=== PATIENT | female | born 1980 | race African-American/Black ===

== ENCOUNTER 2020-06-03 14:32 | Outpatient (REF) | payer SELFPAY ==
[2020-06-06 13:50] LABS: SARS-CoV-2 Specimen Source Nasal
[2020-06-06 13:51] LABS: Method Summary See Comments; SARS-CoV-2 RNA Undetected (Undetected)
== END 2020-06-03 14:52 ==
LOC: NCHCN 14:32
PROVIDERS: Visit Provider Nurse Practitioner Family
DX: Z20.828 Contact with and (suspected) exposure to other viral communicable diseases (principal)
CPT/HCPCS: U0003

== ENCOUNTER 2021-05-13 18:07 | Emergency (ER) | payer OTHER, SELFPAY ==
[2021-05-13 18:19] VITALS: BP 152/88; PULSE 89; RESP 17; TEMP 36.6; O2SAT 97
--- NOTE | 2021-05-13 18:30 | DI.CT_ITS ---
Exam(s) CT CERVICAL SPINE WO EXAM: CT CERVICAL SPINE WO CLINICAL HISTORY: L sided neck pain, L arm pain/hand numbness. TECHNIQUE: Imaging Protocol: Axial computed tomography images with coronal and sagittal reformatted images were created and reviewed CONTRAST MATERIAL: None. COMPARISON: No exams were available for comparison FINDINGS: The neck is held in flexion. There is motion artifact from C6 through T1. Bones: No fractures or dislocations are seen. The alignment of the cervical spine is normal including the craniovertebral junction and cervicothora cic junction. C2-3: Normal. C3-4: Normal. C4-5: Normal. C5-6: Endplate osteophytes and mild anterior disc space narrowing.. Question of a left-sided disc he rniation versus artifact. C6-7: Minimal endplate osteophytes projecting anteriorly.. C7-T1: Normal. Mastoid air cells: Clear where visualized. Soft Tissues: Unremarkable. Thyroid: Normal. Lung apices: Clear where visualized. IMPRESSION: Question of a left-sided disc herniation at C5-6. Mild to moderate degenerative disc changes are see n at this level. RADIATION DOSE DELIVERED: 768.91mGy.cm Total DLP 768.91mGy.cm Total DLP DATA REPOSITORY: All CT scans at this facility are submitted to the National Radiology Data Registry (NRDR) Dose Index Registry (DIR) with the [employer] ([employer]). RADIATION OPTIMIZATION: All CT scans at this facility use at least one of these dose optimization te chniques: automated exposure control; mA and/or kV adjustment per patient size (includes targeted exa ms where dose is matched to clinical indication); or iterative reconstruction.
--- NOTE | 2021-05-13 18:37 | ED.GENADUL_ITS ---
Discharge Plan Disposition Patient Disposition: HOME Condition: Improving Discharge Details Clinical Impression: Cervical radiculopathy, Neck pain, Cervical disc disease Primary Care Provider: Unknown,Unknown ED Provider: Anny Cruz Home Meds and New Rx's Prescriptions: New methocarbamol 500 mg tablet 500 mg PO Q6H PRN (Reason: muscle spasm) Qty: 14 RF: 0 prednisone 20 mg tablet See Rx Instructions .ROUTE .COMPLEX Qty: 18 RF: 0 oxycodone 5 mg tablet 5 mg PO Q6H PRN (Reason: pain) Qty: 7 RF: 0 Discharge Instructions Instructions: Cervical Disc Herniation (ED), Cervical Radiculopathy (ED), Acute Neck Pain (ED) Additional Instructions: You were found to have a cervical disc protrusion suspected at C5-C6 on your CT scan which may be causing some mild pressure in the left side of your neck which may be the cause of your left neck and arm pain. Alternate tylenol and motrin as needed and directed for pain. Prescriptions for steroids, muscle relaxers and pain medication have been sent electronically to your pharmacy. You have been placed on care management list to help arrange for a follow-up appointment with a primary doctor to establish care and for reevaluation of your neck and arm pain and for consideration for cervical spine MRI of your symptoms do not improve or worsen. Return to the emergency department with any worsening or new concerning symptoms such as worsening pain or weakness. Discharge Data Discharge Date/Time-TO BE ENTERED AT DEPARTURE: 05/13/21 19:35 Discharge Physician: Anny Cruz Medical Decision Making 40-year-old male presents with left upper extremity pain extending from his left neck, left trapezius, left upper arm, skipping his forearm and into his left hand associated with left thumb altered sensation for the past 2 weeks. Pain in left side of neck is worse with head movement and tender to palpation in the left cervical paraspinal region. Patient appears comfortable and non-toxic. No focal deficits. Neurovascular intact. No evidence of cellulitis or trauma. Suspect most cervical radiculopathy. Patient drove himself here and cannot get a ride home. Will give an IM injection of Toradol and p.o. prednisone and refer for CT imaging. As he has no acute focal deficits, do not see an indication for emergent MRI imaging at this time. CT imaging notes: 1. No acute fracture or subluxation. 2. Straightening of cervical lordosis with reversal could be seen with muscle spasm . 3. There is a left paracentral disc protrusion suspected at C5-C6 which might be causing at least mild left paracentral canal stenosis. If patient continues to have symptoms, MRI might be considered. No significant neural foraminal stenosis is identified. Patient reassessed and he feels much better and feels good to go home. Prescription for steroids, muscle relaxers and pain medication sent electronically to his pharmacy. Patient does not have a PCP. He was placed on care management list to help arrange for a follow-up appointment with a PCP to establish care and for reevaluation and consideration for outpatient physical therapy or MRI if symptoms not improve or worsen. Usual and customary return precautions given prior to discharge. Medical Records Medical records reviewed: Yes I reviewed the patient's medical records. Imaging Data Radiologic Study: Radiologist's impression: CT Cervical Spine Without Contrast Exam date and time: 05/13/2021 6:39 PM Age: 40 years old Clinical indication: Other: L sided neck pain, L arm pain/hand numbness, R/O nerve impingement, disc herniation TECHNIQUE: Imaging protocol: Computed tomography images of the cervical spine without contrast. Radiation optimization: All CT scans at this facility use at least one of these dose optimization techniques: automated exposure control; mA and/or kV adjustment per patient size (includes targeted exams where dose is matched to clinical indication); or iterative reconstruction. COMPARISON: No relevant prior studies available. FINDINGS: Vertebrae: No acute fracture. Normal alignment. There is reversal of cervical lordosis, centered at C5-C6 . There is no acute fracture or subluxation. Craniocervical junction is normal. There is normal alignment. Vertebral body heights are maintained. Posterior elements are intact. Facets are normally located. C2-C3: No significant disc protrusion. No severe spinal canal stenosis. No significant neural foraminal narrowing. C3-C4: No significant disc protrusion. No severe spinal canal stenosis. No significant neural foraminal narrowing. C4-C5: No significant disc protrusion. No severe spinal canal stenosis. No significant neural foraminal narrowing. C5-C6: There is left paracentral disc protrusion which might be causing mild left paracentral canal stenosis (image 243 series 2). No significant neural foraminal narrowing. C6-C7: No significant disc protrusion. No severe spinal canal stenosis. No significant neural foraminal narrowing. C7-T1: No significant disc protrusion. No severe spinal canal stenosis. No significant neural foraminal narrowing. Soft tissues: Unremarkable. Lungs: Lung apices are normal. IMPRESSION: 1. No acute fracture or subluxation. 2. Straightening of cervical lordosis with reversal could be seen with muscle spasm . 3. There is a left paracentral disc protrusion suspected at C5-C6 which might be causing at least mild left paracentral canal stenosis. If patient continues to have symptoms, MRI might be considered. No significant neural foraminal stenosis is identified. HPI General Mode of arrival: ambulatory . Date/Time Provider Initiated Documentation: 05/13/21 18:26 . Limitations to Documentation: no limitations . Information obtained by: patient . HPI Narrative: Patient is a 40-year-old male who presents with left arm pain mainly in his left upper arm been skipping his forearm and down to his left hand associated with left hand tingling and altered sensation for the past 2 weeks. Patient states 2 weeks ago he will with left- sided arm pain extending from his left neck, left trapezius, left upper arm and then down into the left hand. He states the pain mainly skipped his left forearm. He states that he has developed left hand tingling mainly over his left thumb. He states he awoke with the pain and denies any known injury. He denies fever. Patient states he went to the urgent care within the last week for his symptoms and was told he likely had a muscle spasm and was treated with muscle relaxers and a Medrol Dosepak. He denies any significant relief with these medications. Related Data Home Medications Medication Instructions Recorded Confirmed methocarbamol 500 mg PO Q6H PRN #14 tab 05/13/21 oxycodone 5 mg PO Q6H PRN #7 tab 05/13/21 prednisone See Rx Instructions .ROUTE 05/13/21 .COMPLEX #18 tab Previous Rx's Medication Instructions Recorded methocarbamol 500 mg PO Q6H PRN #14 tab 05/13/21 oxycodone 5 mg PO Q6H PRN #7 tab 05/13/21 prednisone See Rx Instructions .ROUTE 05/13/21 .COMPLEX #18 tab Allergies Allergy/AdvReac Type Severity Reaction Status Date / Time No Known Allergies Allergy Unverified 05/13/21 18:23 General Stated Complaint: GenMedical RADHA: 4 Review of Systems All systems reviewed & are unremarkable except as noted in HPI and below Constitutional Constitutional: Reports as per HPI, Denies chills and Denies fever(s) Eyes Eyes: Denies blurry vision ENT Ears, Nose, Mouth, and Throat: Denies dizziness, Reports neck pain, Denies sore throat and Denies throat swelling Cardiovascular Cardiovascular: Denies chest pain and Denies dyspnea Respiratory Respiratory: Denies cough and Denies dyspnea Gastrointestinal Gastrointestinal: Denies abdominal pain, Denies diarrhea and Denies vomiting Genitourinary Genitourinary: Denies hematuria and Denies dysuria Musculoskeletal Musculoskeletal: Denies back pain, Reports neck pain, Denies numbness and Reports other (L arm pain) Integumentary/Breasts Skin/Breast: Denies lesions and Denies rash Neurologic Neurologic: Denies dizziness, Denies localized weakness and Denies numbness Allergic/Immunologic Allergic/Immunologic: Denies throat swelling [facility] Medical History (Updated 05/13/21 @ 19:17 by Anny Cruz DO) No significant past medical history Surgical History (Updated 05/13/21 @ 19:05 by Anny Cruz DO) No significant past surgical history Social History Smoking/Tobacco Use Status: Never Smoking risk assessment performed?: Yes Alcohol Intake: never Drug use: Never Substance use type: does not use Do you feel safe at home: Yes Do you feel safe in your relationship?: Yes Exam Const General: cooperative, healthy appearing and no acute distress HENMT Head: normal to inspection Mouth: oral mucosae normal Eyes General: appearance normal, both eyes and all related structures Neck Neck: normal visual inspection Resp Effort & Inspection: normal respiratory effort and able to speak in complete sentences Cardio Rate: regular rate Back/Spine/Pelvis Cervical Spine: cervical muscular tenderness (L paraspinal region), pain with cervical ROM, No cervical spinal tenderness and No step off deformity Skin General skin exam: no rashes or lesions noted Neuro General: patient alert, patient awake and patient oriented x3 Motor: muscle tone normal throughout and strength 5/5 throughout Other: Muscle strength bilateral upper extremities 5/5. Radial/ulnar/median nerve sensory and motor function intact. Bilateral biceps/brachioradialis/triceps reflexes 1+. Bilateral radial and ulnar pulses intact. Psych Appearance: grossly normal Affect: normal affect Course Vital Signs Vital signs: Vital Signs Temperature 97.9 F 05/13/21 18:19 Pulse 89 05/13/21 18:19 Respiratory Rate 17 05/13/21 18:19 Blood Pressure 152/88 H 05/13/21 18:19 Pulse Oximetry 97 05/13/21 18:19 Temperature 97.9 F 05/13/21 18:19 Temperature Source Temporal Artery Scan 05/13/21 18:19 Pulse 89 05/13/21 18:19 Respiratory Rate 17 05/13/21 18:19 Respiratory Effort Non-Labored 05/13/21 18:26 Respiratory Depth Normal 05/13/21 18:26 Respiratory Pattern Normal 05/13/21 18:26 Blood Pressure 152/88 H 05/13/21 18:19 Blood Pressure Position Sitting 05/13/21 18:19 Pulse Oximetry 97 05/13/21 18:19 Oxygen Delivery Method Room Air 05/13/21 18:19 Oxygen Flow Rate 0 05/13/21 18:19 Pain Level 6 05/13/21 18:19
[2021-05-13] MEDS: predniSONE 20 MG TAB 60 MG PO (18:51)
[2021-05-13] MEDS: Ketorolac 60 MG/2 ML VIAL IM (18:51)
--- NOTE | 2021-05-13 19:09 | DI.VRAD_ITS ---
PROCEDURE INFORMATION: Exam: CT Cervical Spine Without Contrast Exam date and time: 05/13/2021 6:39 PM Age: 40 years old Clinical indication: Other: L sided neck pain, L arm pain/hand numbness, R/O nerve impingement, disc herniation TECHNIQUE: Imaging protocol: Computed tomography images of the cervical spine without contrast. Radiation optimization: All CT scans at this facility use at least one of these dose optimization techniques: automated exposure control; mA and/or kV adjustment per patient size (includes targeted exams where dose is matched to clinical indication); or iterative reconstruction. COMPARISON: No relevant prior studies available. FINDINGS: Vertebrae: No acute fracture. Normal alignment. There is reversal of cervical lordosis, centered at C5-C6 . There is no acute fracture or subluxation. Craniocervical junction is normal. There is normal alignment. Vertebral body heights are maintained. Posterior elements are intact. Facets are normally located. C2-C3: No significant disc protrusion. No severe spinal canal stenosis. No significant neural foraminal narrowing. C3-C4: No significant disc protrusion. No severe spinal canal stenosis. No significant neural foraminal narrowing. C4-C5: No significant disc protrusion. No severe spinal canal stenosis. No significant neural foraminal narrowing. C5-C6: There is left paracentral disc protrusion which might be causing mild left paracentral canal stenosis (image 243 series 2). No significant neural foraminal narrowing. C6-C7: No significant disc protrusion. No severe spinal canal stenosis. No significant neural foraminal narrowing. C7-T1: No significant disc protrusion. No severe spinal canal stenosis. No significant neural foraminal narrowing. Soft tissues: Unremarkable. Lungs: Lung apices are normal. IMPRESSION: 1. No acute fracture or subluxation. 2. Straightening of cervical lordosis with reversal could be seen with muscle spasm . 3. There is a left paracentral disc protrusion suspected at C5-C6 which might be causing at least mild left paracentral canal stenosis. If patient continues to have symptoms, MRI might be considered. No significant neural foraminal stenosis is identified. Dictated and Authenticated by: Lico Hernandez MD. Ordering:MARA Mccormick MD
--- NOTE | 2021-05-13 19:19 | NUR.NOTE ---
rerferal sent to cm for est pcp for potential mri with neck and back painNursing Note:
--- NOTE | 2021-05-14 10:15 | PDOC.ERCMPRO ---
- If Service Date Differs Date of service: 05/14/21 Time of Service: 10:15 Care Management Progress Note Peter is seen in the ED for cervical radiculopathy. At the request of ED provider, CM coordinates a referral to Jorge A Donnelly MD, of [facility], on-call provider, to assist Peter in obtaining a follow up appointment and in establishing care with a PCP. Peter has [employer] for health insurance.
== END 2021-05-13 19:35 | disposition home or self-care (01) ==
PROVIDERS: Emergency Provider Physician Assistant
DX: M50.122 Cervical disc disorder at C5-C6 level with radiculopathy (principal)
CPT/HCPCS: 96372; 99284; 72125; 99283; J1885; J7512

== ENCOUNTER 2021-09-04 16:57 | Emergency (ER) | payer OTHER, SELFPAY ==
[2021-09-04] VITALS (20 sets, daily range): BP systolic 147–158; BP diastolic 87–94; PULSE 77–93; RESP 18–26; TEMP 36.4; O2SAT 96–99
--- NOTE | 2021-09-04 17:15 | RT.EKG_ITS ---
APPROVED REPORT Exam: Resting ECG Reason for Exam: epigastric pain Patient Location: E HR:83 bpm ECG Measurements Heart Rate 83 AXIS VA 160 P 40 QRSd 85 QRS 7 QT 359 T 39 QTc 423 Conclusion Sinus rhythm...normal P axis, V-rate 60- 99. Sinus; No STEMI. I have reviewed and interpreted ECG and agree with software generated interpretation.
--- NOTE | 2021-09-04 18:32 | ED.GENADUL_ITS ---
Discharge Plan Disposition Patient Disposition: HOME Condition: Stable Discharge Details Clinical Impression: Suspected COVID-19 virus infection, Viral URI with cough Primary Care Provider: Sarah Vences ED Provider: Anny Cruz Home Meds and New Rx's Prescriptions: No Action No Known Home Meds RF: 0 Discharge Instructions Instructions: Upper Respiratory Infection (ED), Acute Cough (ED), COVID-19 (Coronavirus Disease 2019) (ED) Additional Instructions: You were tested for the COVID-19 virus today. Based on your recent COVID-19 contact and your symptoms, it is suspected that you have COVID-19 virus. You will be contacted by the hospital once your test result is available. Please quarantine until directed otherwise by your primary care doctor or the [facility]. Drink plenty of fluids and get plenty of rest. Alternate tylenol and motrin as needed and directed for pain. You have been placed on our care management list to help arrange for outpatient monoclonal antibody infusion if your COVID-19 test is positive. This must be completed within 10 days of symptom onset if you qualify for this infusion. Return immediately to the emergency department if you develop any worsening or new concerning symptoms such as difficulty breathing, persistent vomiting or any other concerns. Stand Alone Forms: PENDING COVID-19 TESTING Discharge Data Discharge Date/Time-TO BE ENTERED AT DEPARTURE: 09/04/21 19:41 Discharge Physician: Anny Cruz Medical Decision Making 40-year-old unvaccinated for Covid male presents with loss of sense of smell and taste, nausea, dry heaving, coughing and malaise for the past 4 days. diagnosed with COVID-19 virus today. Patient denies shortness of breath. Patient appears comfortable and nontoxic. His vitals are within normal limits. Oxygen saturation 99% on room air. Normal oropharynx. Moist mucous membranes. Lungs clear bilaterally. Nursing initially attempted IV but were unable. Patient states he feels he does not need treatment and mainly came for testing for the COVID-19 virus. He declines any medication or IV fluids here. As he has normal oxygen saturation and appears comfortable, do not see indication for lab work or imaging at this time. A send out Covid swab obtained. Discussed with patient that if his Covid test is positive, he may qualify for the monoclonal antibody infusion. Patient was placed on care management list to help arrange for this infusion within 10 days of symptom onset if patient meets criteria. Patient was advised to return here immediately if he develops any significant worsening of symptoms including shortness of breath, persistent vomiting, or any other concerns. Medical Records Medical records reviewed: Yes I reviewed the patient's medical records. HPI General Mode of arrival: ambulatory . Date/Time Provider Initiated Documentation: 09/04/21 16:59 . Limitations to Documentation: no limitations . Information obtained by: patient . HPI Narrative: Patient is a 40-year-old male with no significant past medical history who presents for generally feeling unwell, loss of sense of smell and taste, nausea, dry heaving and coughing for the past 4 days. Patient states his was notified that she tested positive for Covid today. Patient states he is unvaccinated and does not plan to receive the COVID-19 vaccine. He denies any known fever, shortness of breath, vomiting or diarrhea. He states he generally feels okay other than the loss of sense of smell and taste affecting his eating. Related Data Home Medications Medication Instructions Recorded Confirmed Unknown [No Known Home Meds] 09/04/21 09/04/21 Allergies Allergy/AdvReac Type Severity Reaction Status Date / Time No Known Allergies Allergy Unverified 09/04/21 17:14 General Stated Complaint: GenMedical RADHA: 3 Review of Systems All systems reviewed & are unremarkable except as noted in HPI and below Constitutional Constitutional: Reports as per HPI, Denies chills, Reports fatigue, Denies fever(s) and Reports malaise Eyes Eyes: Denies blurry vision ENT Ears, Nose, Mouth, and Throat: Denies dizziness, Denies sore throat and Denies throat swelling Cardiovascular Cardiovascular: Denies chest pain and Denies dyspnea Respiratory Respiratory: Reports cough and Denies dyspnea Gastrointestinal Gastrointestinal: Denies abdominal pain, Denies diarrhea, Reports nausea and Denies vomiting Genitourinary Genitourinary: Denies hematuria and Denies dysuria Musculoskeletal Musculoskeletal: Denies back pain and Denies numbness Integumentary/Breasts Skin/Breast: Denies lesions and Denies rash Neurologic Neurologic: Denies dizziness, Denies localized weakness and Denies numbness Endocrine Endocrine: Reports fatigue Allergic/Immunologic Allergic/Immunologic: Denies throat swelling [facility] Active Problem List (Updated 09/04/21 @ 19:23 by Anny Cruz DO) Cervical radiculopathy (Acute) Neck pain (Acute) Cervical disc disease (Acute) Suspected COVID-19 virus infection (Acute) Viral URI with cough (Acute) Medical History (Updated 09/04/21 @ 19:23 by Anny Cruz DO) No significant past medical history Surgical History (Updated 05/13/21 @ 19:05 by Anny Cruz DO) No significant past surgical history Social History Smoking/Tobacco Use Status: Never Smoking risk assessment performed?: Yes Alcohol Intake: never Drug use: Never Substance use type: does not use Do you feel safe at home: Yes Do you feel safe in your relationship?: Yes Exam Const General: cooperative, healthy appearing, comfortable and no acute distress Orientation: alert, awake and oriented x3 HENMT Head: normal to inspection Ears: hearing grossly normal bilaterally, external ears normal and TM's normal bilaterally General nose exam: external nose normal Face and sinus: normal facial exam Mouth: oral mucosae normal Throat: posterior oropharynx normal Eyes General: appearance normal, both eyes and all related structures Pupils: PERRL EOM: EOM intact bilaterally Neck Neck: normal visual inspection and No submandibular swelling Lymphatic: no lymphadenopathy noted Chest Chest: normal inspection of the chest and no tenderness Resp Effort & Inspection: normal respiratory effort and able to speak in complete sentences Auscultation: clear to auscultation bilaterally Cardio Rate: regular rate Rhythm: regular rhythm GI Inspection: normal to inspection Palpation: soft, not firm, not rigid and nontender Auscultation: normal bowel sounds Skin General skin exam: no rashes or lesions noted Neuro General: patient alert, patient awake and patient oriented x3 Cognition: normal cognition Speech: speech normal Motor: muscle tone normal throughout Sensory Exam: no sensory deficits noted Extrem General: normal to inspection, full ROM, capillary refill normal, no calf tenderness bilaterally and no edema Psych Appearance: grossly normal Mental Status: mental status grossly normal Speech and Movement: speech and movement normal Affect: normal affect Course Vital Signs Vital signs: Vital Signs Temperature 97.5 F L 09/04/21 17:10 Pulse 87 09/04/21 17:10 Respiratory Rate 18 09/04/21 17:10 Blood Pressure 148/87 H 09/04/21 17:10 Pulse Oximetry 99 09/04/21 17:10 Temperature 97.5 F L 09/04/21 17:10 Temperature Source Temporal Artery Scan 09/04/21 17:10 Pulse 87 09/04/21 17:10 Respiratory Rate 21 09/04/21 17:26 Respiratory Effort 09/04/21 17:26 Respiratory Depth Normal 09/04/21 17:26 Respiratory Pattern Normal 09/04/21 17:26 Blood Pressure 148/87 H 09/04/21 17:10 Blood Pressure Position Sitting 09/04/21 17:10 Pulse Oximetry 99 09/04/21 17:10 Oxygen Delivery Method Room Air 09/04/21 17:10 Oxygen Flow Rate 0 09/04/21 17:10
--- NOTE | 2021-09-04 18:36 | NUR.NOTE ---
Nursing Note: Referral given to Care Management to schedule the patient for monoclonal antibodies once his COVID test comes back. It needs to be done within 6n days. His PCP is the [facility]. Vanessa Andersen
[2021-09-06 21:32] LABS: COVID-19 RT-PCR UVMMC Result Positive (Negative)
--- NOTE | 2021-09-07 17:14 | NUR.NOTE ---
referral to cm for set up of mav-infusion. needs to be done with in the next le days, wednesday is preferred.
--- NOTE | 2021-09-08 08:55 | CMACTNOTE_ITS ---
- If Service Date Differs Date of service: 09/08/21 Time of Service: 08:55 Care Management Activity Note Peter is seen in the ED for a viral URI with cough. He is tested for Covid- 19 and his test returns positive. At the request of ED provider, CM contacts Peter's PCP's office to request an order for MAB infusion, if patient meets criteria.
== END 2021-09-04 19:41 | disposition home or self-care (01) ==
PROVIDERS: Emergency Provider Physician Assistant; PCP Internal Medicine
DX: U07.1 COVID-19 (principal); J06.9 Acute upper respiratory infection, unspecified; R05.9 Cough, unspecified
CPT/HCPCS: 36415; 93005; 99283; U0003; 93010